=== PATIENT | male | born 1990 | race African-American/Black ===

== ENCOUNTER 2017-11-07 15:16 | Emergency (ER) | payer OTHER, MEDICAID ==
[~2017-11-07] VITALS: Ht 193 cm; Wt 145.1 kg
[2017-11-07 15:37] VITALS: Ht 193 cm; Wt 145.1 kg
[2017-11-07 16:32] LABS: BASOPHIL % 1.5 % (0-2); PLATELET COUNT 472 x10^3mcL (130-400); RED CELL DISTRIBUTION WIDTH 16.3 % (11.5-14.5)
[2017-11-07 16:39] LABS: CALCIUM 9.3 mg/dL (8.5-10.1); CARBON DIOXIDE 30.1 mmol/L (21-32); CHLORIDE SERUM 103 mmol/L (98-107); CREATININE SERUM 1.1 mg/dL (0.7-1.3); GFR1 > 60 mL/min; GLUCOSE SERUM 92 mg/dL (74-106); POTASSIUM SERUM 4.6 mmol/L (3.5-5.1); SODIUM SERUM 141 mmol/L (136-145)
[2017-11-07 16:42] LABS: AMPHETAMINE QUAL UR NONE DETECTED (See below)
[2017-11-07 16:43] LABS: ALBUMIN 3.4 g/dL (3.4-5.0); ALKALINE PHOSPHATASE 91 U/L (46-116); ALT/SGPT 47 U/L (16-63); AST/SGOT 24 U/L (15-37); BILIRUBIN TOTAL 0.17 mg/dL (0.20-1.00); TOTAL PROTEIN, SERUM 7.9 g/dL (6.4-8.2)
[2017-11-07 19:35] VITALS: BP 151/100
== END 2017-11-07 19:35 ==
LOC: ED 15:16
PROVIDERS: Specialist
DX: R07.9 Chest pain, unspecified (principal); J45.909 Unspecified asthma, uncomplicated; Z88.8 Allergy status to other drugs, medicaments and biological substances; I42.9 Cardiomyopathy, unspecified
CPT/HCPCS: 36415; 83880; Q0092